=== PATIENT | female | born 1955 | race Caucasian/White ===

== ENCOUNTER 2018-08-05 09:20 | Day surgery (SDC) | payer OTHER ==
[2018-08-04 09:14] VITALS: BMI 20.7
[2018-08-05 09:44] LABS: URINE APPEARANCE CLOUDY; URINE BILIRUBIN NEGATIVE (<2.0 mg/dL); URINE COLOR YELLOW; URINE GLUCOSE (UA) NEGATIVE (NEGATIVE); URINE KETONE NEGATIVE (NEGATIVE); URINE LEUK ESTERASE NEGATIVE (NEGATIVE); URINE NITRITE NEGATIVE (NEGATIVE); URINE PROTEIN NEGATIVE (NEGATIVE); URINE UROBILINOGEN NEGATIVE mg/dL (0.2-1.0)
[2018-08-05] MEDS ORDERED: DEXAMETHASONE SOD PHOSPHATE 4 MG/1 ML VIAL ONE (10:12)
[2018-08-05] MEDS ORDERED: LIDOCAINE HCL/PF 2% SDV 5ML VIAL ONE ×2 (10:12→12:03)
[2018-08-05] MEDS ORDERED: ceFAZolin SODIUM 1 GM VIAL ONE (10:12)
[2018-08-05] MEDS ORDERED: SODIUM CHLORIDE 0.9% P/F 10 ML VIAL IJ ONE (10:12)
[2018-08-05] MEDS ORDERED: ONDANSETRON 4 MG/2 ML VIAL IVPUSH PRN (11:10)
[2018-08-05] MEDS ORDERED: oxyCODONE HCL 5 MG TABLET PO PRN ×2 (11:10)
[2018-08-05] MEDS ORDERED: ISOSULFAN BLUE 10 MG/ML VIAL SQ ONE (11:14)
[2018-08-05] MEDS ORDERED: LACTATED RINGERS SOLUTION 1,000 ML IV SCH (11:15)
[2018-08-05] MEDS ORDERED: MIDAZOLAM HCL 2 MG/2 ML SINGLE DOSE VIAL ONE (11:17)
[2018-08-05] MEDS ORDERED: ceFAZolin SODIUM 1 GM VIAL IVPB ONE (11:35)
[2018-08-05] MEDS ORDERED: KETOROLAC TROMETHAMINE 30 MG/1 ML VIAL ONE (11:58)
[2018-08-05] MEDS ORDERED: PROPOFOL 20 ML ONE (12:05)
[2018-08-05] MEDS ORDERED: LIDOCAINE HCL/PF 1% SDV 5ML VIAL ONE (12:21)
[2018-08-05] MEDS ORDERED: LIDOCAINE HCL 1%, 10 MG/ML (20ML VIAL) INF ONE (12:23)
[2018-08-05] MEDS ORDERED: BUPIVACAINE HCL/PF 0.5% (5MG/ML) 10 ML VIAL IJ ONE (12:23)
[2018-08-05 14:23] VITALS: TEMP 98.3
[2018-08-05] MEDS ORDERED: oxyCODONE HCL 5 MG TABLET ONE (14:56)
[2018-08-05] MEDS ORDERED: oxyCODONE HCL 5 MG TABLET PO ONE (15:01)
--- NOTE | 2018-08-05 15:38 | OP ---
DATE OF OPERATION: 08/05/2018 PREOPERATIVE DIAGNOSES: Right breast cancer. POSTOPERATIVE DIAGNOSIS: Right breast cancer. PROCEDURE: Right breast ultrasound-guided lumpectomy with sentinel node biopsy. SURGEON: Maria Guadalupe Kasper MD ANESTHESIA: General. ESTIMATED BLOOD LOSS: Minimal. COMPLICATIONS: None. This is a sterile procedure. INDICATION FOR PROCEDURE: Patient presented with a palpable mass in the upper outer right breast. This was suspicious with mammogram and ultrasound. She has an ultrasound-guided needle biopsy that showed an ER/GA-positive intermediately positive HER2-positive infiltrating ductal carcinoma. After discussion, my recommendation is lumpectomy and a sentinel node biopsy. The procedure was discussed with all of her questions answered. PROCEDURE IN DETAIL: Patient was brought to [facility] and I first took her down to nuclear medicine where I injected technetium-labeled cephalocaudal as an intradermal inject in the right breast 10 o'clock areolar border. She was then brought up to the operating room, and after induction of general anesthesia, an intraoperative ultrasound was performed to localize the lesion in the right breast 10 o'clock location 4 cm from the nipple and 5 mL of isosulfan blue dye was injected by me into the right subareolar plexus and breast was massaged for 5 minutes. The right breast and axilla were then prepped and draped in usual sterile fashion. A 4-cm incision was made in the right axilla and carried down to the clavicle pectoral fascia to identify 2 sentinel lymph nodes. The first one was hot and blue. The second one was hot but not blue. There was no other radioactivity of blue dye. There was some radioactivity initially thought, but ex vivo had no count, so I sent this as right axillary nonsentinel node. Once hemostasis was assured in the axilla, right breast lumpectomy was performed. An ellipse of skin was taken over the palpable mass in the right breast 10 o'clock location, 4 cm from the nipple, and this was excised en bloc, tagged with a long stitch lateral, short stitch superior. An intraoperative ultrasound over the lumpectomy specimen showed adequate margins. This was then sent to Pathology for permanent section. Hemostasis assured with electrocautery. The parenchyma was approximated with interrupted 2-0 Vicryl, skin approximated with interrupted 3-0 Vicryl, and running 4-0 Monocryl. A sterile dressing with Tegaderm and 4 x 4's were applied. The axillary incision was also closed in the routine fashion with interrupted 3-0 Vicryl, running 4-0 Monocryl, and sterile dressing with Tegaderm and 4 x 4's was applied. She tolerated the procedure well. A mammary binder was applied. She was extubated on the operating room table and taken to recovery in good condition. Erin COX/[id number]
[2018-08-05 15:50] VITALS: BP 134/90; PULSE 95
--- NOTE | 2018-08-10 13:57 | PATH ---
Surgical Pathology Report Patient Name: TOM DUDLEY [facility]. Rec. #: [id number] /Age/Gender: 1955 (Age: 62) / F Account: [id number] Location: AMBULATORY SURG Taken: 08/05/2018 Received: 08/05/2018 Reported: 08/10/2018 Physicians: Maria Guadalupe Kasper M.D. Specimen(s) Received A: RIGHT AXILLARY SENTINAL LYMPH NODE #1 B: RIGHT AXILLARY SENTINAL LYMPH NODE #2 C: RIGHT AXILLARY NON SENTINAL LYMPH NODE D: RIGHT BREAST MASS Clinical History Invasive Final Diagnosis A. AXILLARY SENTINEL LYMPH NODE #1, RIGHT, EXCISION: ONE BENIGN LYMPH NODE (0/1). B. AXILLARY SENTINEL LYMPH NODE #2, RIGHT, EXCISION: TWO BENIGN LYMPH NODES (0/2). C. AXILLARY NON-SENTINEL LYMPH NODE, RIGHT, EXCISION: ONE BENIGN LYMPH NODE (0/1). D. BREAST, RIGHT, LUMPECTOMY: INVASIVE MICROPAPILLARY CARCINOMA (TUBULE SCORE: 3/3, NUCLEAR GRADE: 2/3, MITOTIC SCORE: 3/3; TOTAL FRANCESCO SCORE: 8/9). INVASIVE CARCINOMA MEASURES 1.7 CM IN GREATEST DIMENSION, MICROSCOPICALLY. 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 NO LYMPHOVASCULAR INVASION IDENTIFIED. INVASIVE CARCINOMA IS 6 AND 7 MM FROM CLOSEST DEEP AND SUPERIOR MARGINS, RESPECTIVELY. DCIS <1 MM FROM SUPERIOR, MEDIAL, AND DEEP MARGINS. SKIN PRESENT AND UNINVOLVED BY CARCINOMA. PRIOR BIOPSY SITE CHANGES ARE PRESENT. PATHOLOGIC STAGE (pTNM): pT1c pN0(sn). SEE INVASIVE CARCINOMA CASE SUMMARY BELOW. Comment: Immunohistochemical stains performed and interpreted at [facility] show p63 and smooth muscle myosin (SMM-HC) show retained myoepithelial cells within DCIS. Immunohistochemical stain performed at [place], [place] ([id number]) and interpreted at [facility] for D2-40 utilized to evaluate this case. Findings discussed with Dr. Kasper. Comments Breast Invasive Carcinoma: Surgical Pathology Case Summary (Based on AJCC TNM 8 th edition) Procedure _X_ Excision (less than total mastectomy) Specimen Laterality _X_ Right Tumor Size _X_ Greatest dimension of largest invasive focus >1 mm (specify exact measurement) (millimeters): _17_ mm Histologic Type _X_ Invasive micropapillary carcinoma Histologic Grade (Francesco Histologic Score) Glandular (Acinar)/Tubular Differentiation _X_ Score 3 (<10% of tumor area forming glandular/tubular structures) Nuclear Pleomorphism _X_ Score 2 Mitotic Rate _X_ Score 3 Overall Grade _X_ Grade 3 (scores of 8) Tumor Focality _X__ Single focus of invasive carcinoma Ductal Carcinoma In Situ (DCIS) _X_ DCIS is present in specimen _X_ Negative for extensive intraductal component (EIC) Margins Invasive Carcinoma Margins _X_ Uninvolved by invasive carcinoma Distance from closest margin (millimeters): 6 mm Closest margin: Deep DCIS Margins _X_ Uninvolved by DCIS Distance from closest margin (millimeters): _<1_ mm Closest margin: Superior, medial, and deep Regional Lymph Nodes Number of Lymph Nodes with Macrometastases (>2 mm): 0 Number of Lymph Nodes with Micrometastases (>0.2 mm to 2 mm and/or >200 cells): 0 Number of Lymph Nodes with Isolated Tumor Cells (=0.2 mm and =200 cells): 0 Extranodal Extension: _X__ Not identified Number of Lymph Nodes Examined: 4 Number of Mathis Nodes Examined : 3 Treatment Effect _X__ No known presurgical therapy Lymphovascular Invasion _X_ Not identified Pathologic Stage Classification (pTNM, AJCC 8th Edition) Primary Tumor (Invasive Carcinoma) (pT) _X_ pT1c: Tumor >10 mm but =20 mm in greatest dimension Regional Lymph Nodes (pN) Modifier _X_ (sn): Mathis node(s) evaluated. Category (pN) _X__ pN0: No regional lymph node metastasis identified or ITCs only Biomarker Studies Results of ER and VA studies performed on this specimen (block#D3) at [facility] as follows: ER (clone [id number] mouse monoclonal antibody by [employer]):100% nuclear staining with strong intensity (Positive). VA (clone16 mouse monoclonal antibody by [employer]): ~30% nuclear staining with weak to moderate intensity (Positive). Results of Her2 (IHC) & Ki-67 studies performed on this specimen (block#D3) at [place], [place] ([id number]) as follows: Her2 IHC (EP3 from [employer], formerly known as [id number], using Black Polymer Refine detection kit): 1+ (Negative). Ki-67: 20-25% (Intermediate proliferative index). Positive and negative controls (internal if applicable) show appropriate results. Formalin fixation and cold ischemic times are within current ASCO/CAP recommendations for ER, VA and Her2 testing. Electronically Signed Berenice Marquez M.D. Gross Description A. Received in formalin labeled "right axillary sentinel lymph node #1," and is a 2.4 x 1.2 x 0.6 cm lymph node with attached fat. The specimen is bisected and entirely submitted in 2 cassettes. B. Received in formalin labeled "right axillary sentinel node #2," are 2 zepeda lymph nodes with attached fat measuring 0.4 and 1.0 cm in greatest dimension. The specimens are submitted in toto in 2 cassettes. C. Received in formalin labeled "right axillary non-sentinel node," is a 0.7 cm greatest dimension zepeda lymph node with attached fat. The specimen is bisected and entirely submitted in one cassette. D. Received in formalin, labeled "right breast lumpectomy," is a 7.8 x 5.7 x 3.7 cm. zepeda-yellow, irregular, portion of fibroadipose tissue. There is no needle localization wire present. There is a short suture marking the superior aspect and a long suture marking the lateral aspect of the specimen, per the surgeon. The anterior surface displays a 4.0 x 0.7 cm zepeda, elliptical, unremarkable portion of skin. The specimen is inked as follows: Superior blue; inferior green; lateral red; medial yellow; deep black. The specimen is serially sectioned from lateral to medial. Sectioning reveals a 1.4 x 1.3 x 1.2 cm pink-zepeda, indurated mass. The mass is 0.6 cm from the deep margin and 0.8 cm from the superior margin. The remaining margins appear clear of the mass. The remaining breast parenchyma displays foci of firm fibrocystic tissue. Drafter sections are submitted in 10 cassettes as follows: 1-full face section of mass with deep margin; 2-additional mass with deep margin; 3-full face section of mass with superior margin; 4-additional mass with superior margin; 5-inferior margin; 6-skin; 7-medial margin; 8-lateral margin; 5-10-xejwiwxfup fibrous tissue with deep margin. Total formalin fixation time: Approximately 30 hours 08/06/201808/06/2018
== END 2018-08-05 16:00 | disposition home or self-care (01) ==
LOC: JASUSAT 09:20
PROVIDERS: ATTEND Surgery
PROC: 0HBT0ZZ Excision of Right Breast, Open Approach (ICD-10-PCS; principal; 2018-08-05 11:00)
DX: C50.911 Malignant neoplasm of unspecified site of right female breast (principal)
CPT/HCPCS: 78195-TC; 81003; 88307-TC; 88341-TC; 88342-TC; 94760; A9541

== ENCOUNTER 2018-08-28 10:06 | Day surgery (SDC) | payer OTHER ==
[2018-08-27 14:52] VITALS: BMI 20.9
[2018-08-28] MEDS ORDERED: MIDAZOLAM HCL 2 MG/2 ML SINGLE DOSE VIAL ONE (12:53)
[2018-08-28] MEDS ORDERED: PROPOFOL 20 ML ONE (12:53)
[2018-08-28] MEDS ORDERED: KETOROLAC TROMETHAMINE 30 MG/1 ML VIAL ONE (12:54)
[2018-08-28] MEDS ORDERED: DEXAMETHASONE SOD PHOSPHATE 4 MG/1 ML VIAL ONE (12:54)
[2018-08-28] MEDS ORDERED: LIDOCAINE HCL 1%, 10 MG/ML (20ML VIAL) ONE ×2 (13:00→13:34)
[2018-08-28] MEDS ORDERED: ONDANSETRON 4 MG/2 ML VIAL IVPUSH PRN (13:30)
[2018-08-28] MEDS ORDERED: LACTATED RINGERS SOLUTION 1,000 ML IV SCH (13:30)
[2018-08-28] MEDS ORDERED: oxyCODONE HCL 5 MG TABLET PO PRN (13:30)
[2018-08-28] MEDS ORDERED: LIDOCAINE HCL 1%, 10 MG/ML (50 mL VIAL) IJ ONE (13:53)
[2018-08-28 15:26] VITALS: TEMP 98.2
[2018-08-28 16:51] VITALS: BP 129/82; PULSE 80
--- NOTE | 2018-08-29 06:16 | OP ---
DATE OF OPERATION: 08/28/2018 PREOPERATIVE DIAGNOSIS: Right breast cancer. POSTOPERATIVE DIAGNOSIS: Right breast cancer. PROCEDURE: Right breast re-excision lumpectomy. SURGEON: Maria Guadalupe Kasper MD ANESTHESIA: Local IV sedation. ESTIMATED BLOOD LOSS: Minimal. COMPLICATIONS: None. This was a sterile procedure. INDICATION FOR PROCEDURE: The patient had a right lumpectomy sentinel node biopsy that noted a 1.7-cm invasive carcinoma with DCIS. I was widely around invasive carcinoma, however, had close margins on the DCIS less than 1 mm from the superior, medial, and posterior. Therefore, my recommendation was a re-excision. The procedure was discussed with all of the questions answered. PROCEDURE IN DETAIL: The patient was brought to [facility] in [place] and taken into the operating room. After IV sedation, IV antibiotics, the right breast was prepped and draped in the usual sterile fashion. The area of the prior lumpectomy in the upper outer right breast was anesthetized with 1% lidocaine without epinephrine. The prior incision was sharply reopened, and the cavity was entered. The seroma was drained. A new superior margin was taken with a stitch at the old margin, and new medial margin was taken again with a stitch in the old margin as well as the new posterior margin with a stitch at the old margin. These were all sent for pathology for permanent section in formalin. Hemostasis was assured with electrocautery. The parenchyma was approximated with interrupted 2-0 Vicryl, skin approximated with interrupted 3-0 Vicryl and running 4-0 Prolene. A sterile dressing with Tegaderm and 4x4 was applied. She tolerated the procedure well and was taken to recovery in good condition. Erin [id number]
== END 2018-08-28 16:51 | disposition home or self-care (01) ==
LOC: JASU-SURG 10:06
PROVIDERS: ATTEND Surgery
PROC: 0HBT0ZZ Excision of Right Breast, Open Approach (ICD-10-PCS; principal; 2018-08-28 12:00)
DX: C50.911 Malignant neoplasm of unspecified site of right female breast (principal)
CPT/HCPCS: 94760